=== PATIENT | female | born 1980 | race Caucasian/White ===

== ENCOUNTER 2016-06-06 18:01 | Emergency (ER) | payer MEDICAID, OTHER ==
[2016-06-06 18:40] LABS: HCG,QUALITATIVE URINE NEGATIVE
[2016-06-06 18:44] LABS: SPECIFIC GRAVITY 1.015 (1.001-1.030); URINE BILIRUBIN NEGATIVE (NEGATIVE); URINE BLOOD TRACE (NEGATIVE); URINE GLUCOSE (UA) NEGATIVE (NEGATIVE); URINE LEUKOCYTE ESTERASE NEGATIVE (NEGATIVE); URINE NITRITE NEGATIVE (NEGATIVE); URINE PROTEIN NEGATIVE (NEGATIVE); URINE UROBILINOGEN NORMAL (0-1 mg/dl)
[2016-06-06 18:54] LABS: URINE APPEARANCE CLEAR; URINE COLOR LIGHT YELLOW
[2016-06-06 18:57] LABS: URINE EPITHELIAL CELLS 0-2 /hpf; URINE RBC RARE /hpf; URINE WBC RARE /hpf
[2016-06-06 18:58] LABS: URINE BACTERIA 0
--- NOTE | 2016-06-06 19:30 | US ---
Name: RENETTA ALDRIDGE Exam: Pelvic ultrasound Comparison: None Clinical history: Hysterectomy and left oophorectomy due to endometriosis. Right lower quadrant pain. Findings: Transabdominal and endovaginal imaging of the pelvis was performed. Patient was catheterized therefore the bladder is empty. Mackay catheter balloon is identified. The uterus is surgically absent. The right ovary measures 3.1 x 3.1 x 1.8 cm with a volume of 9.2 mL. The right ovary contains several subcentimeter simple cysts. Slightly to the left of midline in the region of the vaginal cuff, there is a 1.8 x 2.1 x 1.0 cm fluid collection. There is no associated increased blood flow. Fluid is noted within adjacent bowel. There is no free fluid. Impression: 1. 2.1 x 1.8 x 1.0 cm fluid collection within the left aspect of the vaginal cuff. This could be postsurgical in nature. This does not have typical appearance of abscess. 2. Normal ultrasound appearance of the right ovary 3. Surgically absent uterus and left ovary 4. No significant free fluid Note: The above report was uploaded to [facility]'s electronic medical records system at 2125 hours.
[2016-06-06] MEDS ORDERED: ACETAMINOPHEN 325 MG TABLET ONE (19:46)
[2016-06-06] MEDS ORDERED: DEXAMETHASONE 4 MG TABLET ONE (19:46)
[2016-06-06 20:20] LABS: BASO % 0.5 % (0.2-1.0); EOS # 0.4 (0.0-0.5); EOS % 5.8 % (0.9-2.9); HEMATOCRIT 39.1 % (37.0-47.0); HEMOGLOBIN 12.8 gm/l (12.0-16.0); IMM NEUT% 0.1 % (0-1); LYMPH # 2.5 (1.0-4.8); LYMPH % 32.6 % (15-45); MEAN CORPUSCULAR HEMOGLOBIN 30.1 pg (27.0-31.0); MEAN CORPUSCULAR HGB CONC 32.7 g/dl (33.0-37.0); MEAN PLATELET VOLUME 9.7 fl (7.4-10.4); MONO # 0.6 (0.0-0.8); MONO % 7.8 % (4-12); NEUT % 53.2 % (43-75); PLATELET COUNT 263 K/mm3 (130-400); RED CELL DISTRIBUTION WIDTH 12.7 % (11.5-14.5)
[2016-06-06 20:29] LABS: BLOOD UREA NITROGEN 9 mg/dL (7-25); BUN/CREATININE RATIO 11 (6-20); C-REACTIVE PROTEIN < 0.3 mg/dl (<1.0); CALCIUM 9.6 mg/dL (8.6-10.3); GLOMERULAR FILTRATION RATE 81 mL/min (60-107)
== END 2016-06-06 20:41 | disposition short-term general hospital (02) ==
LOC: ED 18:01
DX: R33.9 Retention of urine, unspecified (principal); M54.9 Dorsalgia, unspecified; E03.9 Hypothyroidism, unspecified; Z88.5 Allergy status to narcotic agent
CPT/HCPCS: 81025; 86141; 85025; 80048; 85651; 81001; 76830; 76857; 99284; 51702; 99285; A9270 ×2